=== PATIENT | male | born 1960 | race Two or more races ===

== ENCOUNTER 2018-06-26 12:55 | Emergency (ER) | payer MEDICARE, MEDICAID ==
[~2018-06-26] VITALS: Ht 172.7 cm; Wt 75.0 kg
[2018-06-26] MEDS ORDERED: ACETAMINOPHEN 500MG TABLET PO ONE (13:30)
[2018-06-26] MEDS ORDERED: ACETAMINOPHEN 500MG TABLET PO NR (19:13)
[2018-06-26] MEDS ORDERED: IBUPROFEN 400MG TABLET PO ONE (19:15)
[2018-06-26 19:50] VITALS: BP 139/83
== END 2018-06-26 21:15 | disposition home or self-care (01) ==
LOC: ER 14:50
DX: M13.861 Other specified arthritis, right knee (principal); J45.909 Unspecified asthma, uncomplicated; I25.2 Old myocardial infarction
CPT/HCPCS: 29505; 36415; 73560; 84550; 99285